=== PATIENT | female | born 1950 | race Two or more races ===

== ENCOUNTER 2016-07-10 20:00 | Observation (INO) | payer OTHER ==
--- NOTE | 2016-07-10 20:40 | ER Document Report ---
ED General - General Stated Complaint: STROKE SYMPTONS Time seen by provider: 20:35 Mode of Arrival: Medic Information source: Patient Notes: This is a 65-year-old female with a history of hypertension brought in by EMS with acute strokelike symptoms. The patient was with family at the time and it just walked the beach and gotten back to the house when the patient fell twice because of weakness in the knees. After the scene. When EMS arrived, the patient was noted to have right facial droop and slurred speech. The family stated she was confused at the time. The onset of symptoms was 1854. - HPI Onset: Just prior to arrival Onset/Duration: Sudden Quality of pain: No pain Severity: None Pain Level: Denies Associated symptoms: denies: Chest pain, Fever, Shortness of breath Exacerbated by: Denies Relieved by: Denies Similar symptoms previously: No Recently seen / treated by doctor: No - Related Data Allergies/Adverse Reactions: No Known Allergies Allergy (Unverified 07/10/16 20:53) Home Medications: Current Home Medications Alprazolam [Xanax 0.5 mg Tablet] 0.5 mg PO Q6HP PRN 07/10/16 [History] Losartan/Hydrochlorothiazide [Hyzaar 50-12.5 Tablet] 1 each PO DAILY 07/10/16 [ History] Venlafaxine HCl [Effexor Xr] 150 mg PO DAILY 07/10/16 [History] Zolpidem Tartrate [Ambien] 10 mg PO QHS 07/10/16 [History] Past Medical History - General Information source: Patient - Social History Smoking Status: Never Smoker Cigarette use (# per day): No Chew tobacco use (# tins/day): No Frequency of alcohol use: None Drug Abuse: None Lives with: Family Family History: Reviewed & Not Pertinent Patient has suicidal ideation: No Patient has homicidal ideation: No - Past Medical History Cardiac Medical History: Reports: Hx Hypertension Pulmonary Medical History: Reports: None EENT Medical History: Reports: None Neurological Medical History: Reports: None Endocrine Medical History: Reports: None Renal/ Medical History: Reports: None Malignancy Medical History: Reports: None GI Medical History: Reports: None Musculoskeltal Medical History: Reports None Skin Medical History: Reports None Psychiatric Medical History: Reports: Hx Anxiety, Hx Depression Traumatic Medical History: Reports: None Infectious Medical History: Reports: None Past Surgical History: Reports: Hx Gastric Bypass Surgery Review of Systems - Review of Systems Notes: Review of systems: Constitutional: Denies fever, chills. EENT: Denies ear pain, sinus tenderness, throat pain, throat swelling. Cardiovascular: Denies chest pain, palpitations, dyspnea or edema. Respiratory: Denies wheezing, cough, hemoptysis. Abdomen: Denies abdominal pain, nausea, vomiting, diarrhea. Denies BRBPR or melena. Genitourinary: Denies dysuria, pyuria, hematuria, flank pain. Musculoskeletal: denies joint pain or swelling, denies back pain. Neurologic: See H&P. Skin: Denies rash, lesions. Physical Exam - Vital signs Vitals: Pulse BP 78 133/88 H 07/10/16 20:10 07/10/16 20:10 Notes: Physical exam: GENERAL: 65-year-old female, alert and oriented 3, answering questions. Family is at the bedside and states that her speech is back to normal. HEAD: Atraumatic, normocephalic. EYES: Pupils equal round and reactive to light, extraocular movements intact, sclera anicteric, conjunctiva are normal. ENT: TMs normal, nares patent, oropharynx clear without exudates. Moist mucous membranes. NECK: Normal range of motion, supple without lymphadenopathy or JVD. LUNGS: Breath sounds clear to auscultation bilaterally and equal. No wheezes rales or rhonchi. HEART: Regular rate and rhythm without murmurs, rubs or gallops. ABDOMEN: Soft, normoactive bowel sounds. No tenderness to palpation. No guarding, no rebound. No masses appreciated. EXTREMITIES: Normal range of motion, no pitting or edema. No clubbing or cyanosis. NEUROLOGICAL: Cranial nerves II through XII grossly intact. Level of consciousness is normal, she is able to answer the month and her age correctly, she is able to respond to commands with opening and closing eyes and light technician and release hand, her gaze is normal, visual fritz are intact, normal facial movements without paralysis, motor exam to the upper and lower extremities is good, no significant ataxia, sensory is grossly intact, her best language is good: She is able to describe each picture correctly, she relates his sentences without difficulty. Her articulation is at baseline as per the family at the bedside. There is no extinction or inattention. NIH is 0. PSYCH: Normal mood, normal affect. SKIN: Warm, Dry, normal turgor, no rashes or lesions noted. Course - Re-evaluation Re-evalutation: 07/10/16 20:40 Patient does have symptoms of an acute stroke and those symptoms have resolved during transport in the ambulance on the way to the hospital. Currently her NIH is 0 and she is not a candidate for thrombolytics. 07/10/16 23:33 - Vital Signs Vital signs: Temp Pulse Resp BP Pulse Ox 98.4 F 78 18 106/67 97 07/10/16 20:15 07/10/16 20:10 07/10/16 22:31 07/10/16 22:31 07/10/16 22:31 - Laboratory Result Diagrams: 07/10/16 20:27 07/10/16 20:27 Laboratory results interpreted by me: 07/10/16 07/10/16 20:27 20:27 Seg Neutrophils % 41.9 L Potassium 3.4 L Chloride 108 H Total Protein 6.2 L - Diagnostic Test Radiology reviewed: Image reviewed, Reports reviewed - CT of the head shows no acute stroke - EKG Interpretation by Me Rate: Normal Rhythm: NSR - EKG shows normal sinus rhythm with a ventricular rate of 69, no acute ST-T wave changes Discharge - Discharge Clinical Impression: acute TIA Condition: Stable Disposition: ADMITTED OBSERVATION Admitting Provider: Hospitalist Unit Admitted: Telemetry
[2016-07-10 20:42] LABS: ABSOLUTE BASOPHILS # (AUTO) 0.1 10^3/uL (0.0-0.2); ABSOLUTE EOSINOPHILS # (AUTO) 0.2 10^3/uL (0.0-0.6); ABSOLUTE LYMPHOCYTES (AUTO) 2.3 10^3/uL (0.5-4.7); ABSOLUTE MONOCYTES (AUTO) 0.5 10^3/uL (0.1-1.4); ABSOLUTE NEUT (AUTO) 2.2 10^3/uL (1.7-8.2); BASOPHILS % (AUTO) 1.3 % (0-2); EOSINOPHILS % (AUTO) 3.6 % (0-6); HEMATOCRIT 36.8 % (36.0-47.0); HEMOGLOBIN 12.2 g/dL (12.0-15.5); HGB HCT DIFFERENCE -0.2; MEAN CORPUSCULAR HEMOGLOBIN 28.5 pg (27.0-33.4); MEAN CORPUSCULAR VOLUME 86 fl (80-97); MONOCYTES % (AUTO) 9.2 % (3-13); RED BLOOD COUNT 4.26 10^6/uL (3.72-5.28); RED CELL DISTRIBUTION WIDTH 13.9 % (11.5-14.0); SEGMENTED NEUTROPHILS % (AUTO) 41.9 % (42-78); WHITE BLOOD COUNT 5.2 10^3/uL (4.0-10.5)
--- NOTE | 2016-07-10 20:45 | EKG REPORT ---
SEVERITY:- NORMAL ECG - SINUS RHYTHM : Confirmed by: Ray Brooke 10-Jul-2016 20:44:35
[2016-07-10 20:47] LABS: PARTIAL THROMBOPLASTIN TIME 31.5 SEC (23.5-35.8); PROTHROMBIN TIME 11.9 SEC (11.4-15.4)
[2016-07-10 21:04] LABS: ALANINE AMINOTRANSFERASE 39 U/L (9-52); ALBUMIN 3.6 g/dL (3.5-5.0); ALKALINE PHOSPHATASE 118 U/L (38-126); ANION GAP 12 (5-19); ASPARTATE AMINO TRANSFERASE 33 U/L (14-36); BILIRUBIN,DIRECT 0.2 mg/dL (0.0-0.4); BILIRUBIN,TOTAL 0.3 mg/dL (0.2-1.3); BLOOD UREA NITROGEN 10 mg/dL (7-20); CALCIUM 9.2 mg/dL (8.4-10.2); CARBON DIOXIDE 23 mmol/L (22-30); CHLORIDE 108 mmol/L (98-107); CREATINE KINASE 48 U/L (30-135); CREATININE RESULT 0.57 mg/dL (0.52-1.25); GLUCOSE 84 mg/dL (75-110); POTASSIUM 3.4 mmol/L (3.6-5.0); SODIUM 143.2 mmol/L (137-145); TOTAL PROTEIN 6.2 g/dL (6.3-8.2)
[2016-07-10 21:16] LABS: CREATINE KINASE MB 0.42 ng/mL (<4.55)
[2016-07-10 21:18] LABS: TROPONIN I < 0.012 ng/mL
[2016-07-11] MEDS ORDERED: ACETAMINOPHEN 325 MG TABLET PO PRN (00:32)
[2016-07-11] MEDS ORDERED: POTASSI CL 20 MEQ/D5NS 1L 1,000 ML IV PRN (00:32)
--- NOTE | 2016-07-11 00:50 | PDOC H&P ---
History of Present Illness Admission Date/PCP: 07/10/16 23:52 OOT--[facility]. Patient complains of: stroke Sx's History of Present Illness: EBTH UNDERWOOD is a 65 year old female with underlying hypertension, anxiety, arthritis, and occasional problems with constipation asthma who presents to the emergency room for evaluation of above complaint. Patient has been discussed with emergency room physician who evaluated the patient. She is in the area visiting family. After she and family had been walking on the beach late afternoon, she fell twice because of "weakness in my knees." Associated right facial droop and slurring of speech upon EMS arrival, along with some confusion. Symptoms have now resolved, and patient is back to baseline, according to sister and niece, who are present at her side with her approval. No prior such episodes. No associated numbness or tingling of extremities. Just "weakness in my knees." Associated mild ear pain, which has since resolved. Otherwise, no headache, chest or abdominal pain. No nausea vomiting, fever or chills, diarrhea or dysuria. No use of tobacco or illicit drugs. Occasional alcohol, but not very much or very often.. Laboratory results are listed in [employer] and are reviewed. X-ray summary results are listed below, with full report(s) reviewed. . EKG reviewed. No prior EKG available for comparison. Social history/personal habits: . One child. Works outside the home. Personal habits as noted above. Allergies/adverse reactions NKDA. Home medications Home medications initially autopopulated into [employer] may not accurately reflect patient's true medications, dosages, and/or frequencies. wind technician to reconcile medications. Unfortunately, patient uncertain of all her medications/dosages/frequencies. REVIEW OF SYSTEMS: Constitutional: No fever or chills. Eyes: Wears glasses. ENT: No swallowing problems or complaints. No hearing problems or complaints. Pulmonary: No current complaints. Cardiovascular: No current complaints, including chest pain. Gastrointestinal: No current complaints, including nausea or vomiting. Skin: No current complaints, including rashes. Hematologic: No unusual easy bruising or bleeding. Easy bruising. Neurologic: See history and present illness. Musculoskeletal: Joint pain from arthritis. Psychiatric: Mild Anxiety Endocrine: No current complaints, including polyuria. Genitourinary: No current complaints, including dysuria. PHYSICAL EXAMINATION: 5 feet 7 inches tall. 99 kg. BMI 34.2 kg/m. Blood pressure 130/70. Pulse 78 and regular. 97% saturation on room air. Respirations are 16 and unlabored. Temperature 98.4. Somewhat obese otherwise well-developed female appearing approximately her stated age. Pleasant awake alert and cooperative. No obvious distress other than somewhat anxious. Emergency room acute care certified nursing assistant Ori is present. Skin is warm and dry. No grossly obvious evidence of rash in areas of skin examined. No subcutaneous nodules palpated. ENT: Hearing grossly normal to normal conversation. Tongue midline on protrusion pink and slightly tacky. Eyes: No scleral icterus. Pupils equal and reactive to light at 4 mm. [place] conjunctivae. Neck is supple and nontender to gentle active range of motion and palpation. Midline trachea. No palpable thyroid nodule mass enlargement or tenderness. Lymphatic: No palpable cervical or clavicular nodes. Neck and lymphatic exams limited by patient body habitus. Psychiatric: Reasonable insight into acute and chronic medical issues. Oriented to time location and why here. Lungs: Auscultation reveals clear and equal breath sounds bilaterally. No use of accessory respiratory muscles. Cardiovascular: Heart regular rate and rhythm, without gallop murmur or rub. No carotid or abdominal aortic bruits. No ankle or pedal edema. palpable dorsalis pedis pulses. Abdomen: soft, somewhat obese, nontender with positive bowel sounds. Unable to adequately evaluate abdomen for masses or organomegaly due to body habitus. Extremities: Feet are warm and dry. No left calf tenderness to compression. Very mild right calf tenderness to compression, without palpable venous cord. Patient states this has been present intermittently for several months, without recent change. No grossly obvious visual evidence of calf swelling. Gentle manipulation of lower extremities fails to reveal any obvious evidence of injury or instability to knees hips or ankles. Neurologic: Cranial Nerves II through XII are grossly intact. Light touch intact at face, upper and lower extremities. Motor function of major muscle groups upper and lower extremities 5 over 5 and symmetric. Patellar reflexes absent. Absent Babinski. Past Medical History Cardiac Medical History: Reports: Hypertension Denies: Congestive Heart Failure, DVT, Hyperlipidema, Pulmonary Embolism Pulmonary Medical History: Denies: Asthma, Chronic Obstructive Pulmonary Disease (COPD) EENT Medical History: Reports: None Neurological Medical History: Denies: Hemorrhagic CVA, Ischemic CVA, Seizures Endocrine Medical History: Denies: Diabetes Mellitus Type 1, Diabetes Mellitus Type 2, Hyperthyroidism, Hypothyroidism Renal/ Medical History: Reports: None Malignancy Medical History: Reports: None GI Medical History: Reports: Other - Mild occasional constipation. Denies: Cirrhosis, Gastroesophageal Reflux Disease, Hepatitis, Peptic Ulcer Disease Musculoskeltal Medical History: Reports: Arthritis - Mild Skin Medical History: Reports: None Psychiatric Medical History: Reports: General Anxiety Disorder Denies: Alcohol Dependency, Substance Abuse, Tobacco Dependency Traumatic Medical History: Reports: None Hematology: Reports: None Infectious Medical History: Denies: Hepatitis B, Hepatitis C Past Surgical History Past Surgical History: Reports: Gastric Bypass Surgery, Other - Cataract surgery. Social History Information Source: Patient, Emergency Med Personnel, [facility] Records Lives with: Spouse/Significant other Smoking Status: Never Smoker Frequency of Alcohol Use: Occasional Drugs: None - Advance Directive Resuscitation Status: Full Code Surrogate healthcare decision maker:: Family History Family History: Reviewed & Not Pertinent Parental Family History Reviewed: Yes Children Family History Reviewed: Yes Sibling(s) Family History Reviewed.: Yes Medication/Allergy Home Medications: RX: Alprazolam [Xanax 0.5 mg Tablet] 0.5 mg PO BID 07/10/16 RX: Losartan/Hydrochlorothiazide [Hyzaar 50-12.5 Tablet] 1 each PO DAILY RX: Venlafaxine HCl [Effexor Xr] 150 mg PO DAILY 07/10/16 RX: Zolpidem Tartrate [Ambien] 10 mg PO QHS 07/10/16 RX: Acetaminophen [Tylenol 325 mg Tablet] 650 mg PO Q4HP PRN tablet 07/11/16 RX: Aspirin [Ecotrin 325 mg EC Tablet] 325 mg PO DAILY tabec 07/11/16 Simvastatin [Zocor 20 mg Tablet] 20 mg PO QHS #30 tablet 07/11/16 Allergies/Adverse Reactions: No Known Allergies Allergy (Unverified 07/10/16 20:53) Physical Exam Vital Signs: Temp Pulse Resp BP Pulse Ox 98.4 F 78 18 106/67 97 07/10/16 20:15 07/10/16 20:10 07/10/16 22:31 07/10/16 22:31 07/10/16 22:31 Results Impressions: Chest X-Ray 07/10/16 20:03 IMPRESSION: NO SIGNIFICANT RADIOGRAPHIC FINDING IN THE CHEST. Head CT 07/10/16 20:03 IMPRESSION: NORMAL BRAIN CT WITHOUT CONTRAST. Pertinent findings on the imaging study reported as a CRITICAL RESULT to Sonido Sargent at20:15 on 07/10/2016. Category of Critical Result: Stroke protocol. Assessment & Plan - Diagnosis (1) Acute encephalopathy Is this a current diagnosis for this admission?: Yes (2) Acute focal neurological deficit Is this a current diagnosis for this admission?: YesPlan: Patient will be placed in observation bed under CVA/TIA protocol. Multiple imaging procedures, intracranial, vascular, and cardiac. lipid panel. Permissive hypertension. Patient is a full code. I have strongly urged patient not to get out of bed without calling nursing staff, to avoid a fall with injury.] Knee high SCDs for DVT prophylaxis, along with subcutaneous Lovenox . Impression and plans were discussed with patient, sister and niece, all of whom concur. Time spent in evaluation and management of patient: 63 minutes (3) Dysarthria Is this a current diagnosis for this admission?: Yes (4) Facial droop Is this a current diagnosis for this admission?: Yes (5) Hypokalemia Is this a current diagnosis for this admission?: YesPlan: Likely due to her blood pressure medication. Potassium replacement with follow- up Chem-7. (6) HTN (hypertension) Qualifiers: Hypertension type: unspecified secondary hypertension Qualified Code (s): I15.9 - Secondary hypertension, unspecified; I15 - Secondary hypertension Is this a current diagnosis for this admission?: YesPlan: Will hold her at home medications for permissive hypertension.
[2016-07-11] MEDS ORDERED: ASPIRIN 325 MG TABLET, ENT COATED PO ONE (01:00)
[2016-07-11] MEDS ORDERED: ASPIRIN 325 MG TABLET, ENT COATED PO SCH (01:00)
[2016-07-11] MEDS ORDERED: POTASSIUM CHLORIDE 20 MEQ/15 ML UDCUP PO ONE ×2 (01:15→03:00)
[2016-07-11] MEDS ORDERED: ALPRAZOLAM 0.5 MG TABLET PO PRN (07:33)
[2016-07-11] MEDS ORDERED: ENOXAPARIN SODIUM INJ 40 MG/0.4 ML DISP.SYRIN SUBCUT SCH (08:00)
[2016-07-11 08:05] LABS: ANION GAP 7 (5-19); BLOOD UREA NITROGEN 11 mg/dL (7-20); CARBON DIOXIDE 26 mmol/L (22-30); CHLORIDE 110 mmol/L (98-107); CHOLESTEROL 239.62 mg/dL (0-200); CREATININE RESULT 0.53 mg/dL (0.52-1.25); Direct HDL 59 mg/dL (>40); GLUCOSE 82 mg/dL (75-110); SODIUM 143.4 mmol/L (137-145); TRIGLYCERIDES 126 mg/dL (<150)
[2016-07-11 08:15] LABS: DIRECT LDL 142 mg/dL (<100)
[2016-07-11 08:48] LABS: POTASSIUM 4.5 mmol/L (3.6-5.0)
[2016-07-11] MEDS ORDERED: VENLAFAXINE HCL 75 MG CAP.SR.24H PO SCH (10:00)
[2016-07-11] MEDS ORDERED: LOSARTAN POTASSIUM 50 MG TABLET PO SCH (10:00)
[2016-07-11 14:09] VITALS: BP 121/74
--- NOTE | 2016-07-11 14:52 | PDOC DISCHARGE SUMMARY ---
General - Admit/Disc Date/PCP Admission Date/Primary Care Provider: 07/11/16 00:32 Discharge Date: 07/11/16 - Discharge Diagnosis (1) Acute focal neurological deficit Is this a current diagnosis for this admission?: YesSummary: Patient had transient dysarthria and right-sided facial droop which was placed resolved upon her arrival here. She underwent CT of the head showed no infarct. Today she had an MRI and MRA of the brain showed no acute infarct perhaps some mild small vessel disease. Carotid duplex ultrasounds were done which were unremarkable for any stenosis. Patient had no further symptoms during her hospital stay she was discharged on aspirin 325 mg daily and simvastatin. (2) Dysarthria Is this a current diagnosis for this admission?: YesSummary: Since resolved (3) Facial droop Is this a current diagnosis for this admission?: YesSummary: Resolved prior to her arrival here (4) HTN (hypertension) Is this a current diagnosis for this admission?: YesSummary: Presently normotensive and current medications (5) Acute encephalopathy Is this a current diagnosis for this admission?: YesSummary: She had periods of confusion probably current family and EMS resolved by the time she arrived here. (6) Hypokalemia Is this a current diagnosis for this admission?: YesSummary: Repleted (7) HLD (hyperlipidemia) Is this a current diagnosis for this admission?: YesSummary: Placed on simvastatin 20 mg daily - Additional Information Resuscitation Status: Full Code Discharge Activity: Activity As Tolerated, Balance Activity w/Rest Home Medications: Alprazolam [Xanax 0.5 mg Tablet] 0.5 mg PO BID 07/10/16 Losartan/Hydrochlorothiazide [Hyzaar 50-12.5 Tablet] 1 each PO DAILY 07/10/16 Venlafaxine HCl [Effexor Xr] 150 mg PO DAILY 07/10/16 Zolpidem Tartrate [Ambien] 10 mg PO QHS 07/10/16 Acetaminophen [Tylenol 325 mg Tablet] 650 mg PO Q4HP PRN tablet 07/11/16 Aspirin [Ecotrin 325 mg EC Tablet] 325 mg PO DAILY tabec 07/11/16 Simvastatin [Zocor 20 mg Tablet] 20 mg PO QHS #30 tablet 07/11/16 History of Present Illness Patient complains of: Bilateral leg weakness, right-sided facial droop and dysarthria History of Present Illness: BETH UNDERWOOD is a 65 year old female with underlying hypertension, anxiety, arthritis, and occasional problems with constipation asthma who presents to the emergency room for evaluation of above complaint. Patient has been discussed with emergency room physician who evaluated the patient. She is in the area visiting family. After she and family had been walking on the beach late afternoon, she fell twice because of "weakness in my knees." Associated right facial droop and slurring of speech upon EMS arrival, along with some confusion. Symptoms have now resolved, and patient is back to baseline, according to sister and niece, who are present at her side with her approval. No prior such episodes. No associated numbness or tingling of extremities. Just "weakness in my knees." Associated mild ear pain, which is since resolved. Otherwise, no headache, chest or abdominal pain. No nausea vomiting, fever or chills, diarrhea or dysuria. No use of tobacco or illicit drugs. Occasional alcohol, but not very much or very often.. Hospital Course Hospital Course: Patient was admitted to the [facility] on telemetry. She had MENDS done hourly and then every 4 hours she had no further symptoms of dysarthria or facial droop. She was evaluated by physical therapy who found no deficits. She underwent an MRI and MRA of the brain which were unremarkable for any acute infarcts. He underwent carotid duplex ultrasound which showed no carotid stenosis. She's had no arrhythmias on telemetry. Her vital signs are well controlled. She was started on aspirin 325 mg daily and simvastatin 20 mg at bedtime. She will follow-up with her primary care provider when she returns to [place] tomorrow. Physical Exam Vital Signs: Temp Pulse Resp BP Pulse Ox 97.2 F 84 18 121/74 98 07/11/16 14:08 07/11/16 14:08 07/11/16 14:08 07/11/16 14:08 07/11/16 14:08 Intake & Output 07/10/16 07/11/16 07/12/16 06:59 06:59 06:59 Intake Total 150 120 Balance 150 120 Weight 97.9 kg General appearance: PRESENT: no acute distress, obese, well-developed, well- nourished Head exam: PRESENT: atraumatic, normocephalic Eye exam: PRESENT: conjunctiva pink, EOMI, PERRLA. ABSENT: scleral icterus Ear exam: PRESENT: normal external ear exam Mouth exam: PRESENT: moist, tongue midline Neck exam: ABSENT: carotid bruit, JVD, lymphadenopathy, thyromegaly Respiratory exam: PRESENT: clear to auscultation donnie. ABSENT: rales, rhonchi, wheezes Cardiovascular exam: PRESENT: RRR. ABSENT: diastolic murmur, rubs, systolic murmur Pulses: PRESENT: normal dorsalis pedis pul Vascular exam: PRESENT: normal capillary refill GI/Abdominal exam: PRESENT: normal bowel sounds, soft. ABSENT: distended, guarding, mass, organolmegaly, rebound, tenderness Rectal exam: PRESENT: deferred Extremities exam: PRESENT: full ROM. ABSENT: calf tenderness, clubbing, pedal edema Neurological exam: PRESENT: alert, awake, oriented to person, oriented to place , oriented to time, oriented to situation, reflexes normal, CN II-XII grossly intact, normal gait. ABSENT: motor sensory deficit Psychiatric exam: PRESENT: appropriate affect, normal mood. ABSENT: homicidal ideation, suicidal ideation Skin exam: PRESENT: dry, intact, warm. ABSENT: cyanosis, rash Results Laboratory Results: 07/11/16 07:15 07/11/16 07:15 Sodium 143.4 Potassium 4.5 D Chloride 110 H Carbon Dioxide 26 Anion Gap 7 BUN 11 Creatinine 0.53 Est GFR ( Amer) > 60 Est GFR (Non-Af Amer) > 60 Glucose 82 Calcium 10.0 Triglycerides 126 Cholesterol 239.62 H LDL Cholesterol Direct 142 H VLDL Cholesterol 25.0 HDL Cholesterol 59 Impressions: Chest X-Ray 07/10/16 20:03 IMPRESSION: NO SIGNIFICANT RADIOGRAPHIC FINDING IN THE CHEST. Head CT 07/10/16 20:03 IMPRESSION: NORMAL BRAIN CT WITHOUT CONTRAST. Pertinent findings on the imaging study reported as a CRITICAL RESULT to Sonido Sargent at20:15 on 07/10/2016. Category of Critical Result: Stroke protocol. Head MRI 07/11/16 00:37 IMPRESSION: 1. Suspect mild small vessel disease. Otherwise, unremarkable noncontrast MRI brain. No recent CVA. Brain MRI with MRA 07/11/16 00:38 IMPRESSION: NORMAL MRA OF THE [place]. Carotid Doppler Study 07/11/16 00:38 IMPRESSION: NO HEMODYNAMICALLY SIGNIFICANT STENOSIS. Qualifiers PATEINT BEING DISCHARGED WITH ANY OF THE FOLLOWING DIAGNOSIS?: No Plan Discharge Plan: Home with family. She'll follow-up with her family physician when she returns to [place] Time Spent: Less than 30 Minutes
[2016-07-11] MEDS ORDERED: ZOLPIDEM TARTRATE 5 MG TABLET PO SCH (22:00)
[2016-07-11] MEDS ORDERED: (PENDING PHARMACY ID) (Zolpidem Tartrate [Ambien] 10 MG) PO SCH (22:00)
--- NOTE | 2016-07-14 09:23 | EKG REPORT ---
SEVERITY:- NORMAL ECG - SINUS RHYTHM : Confirmed on behalf of: Ray Brooke 14-Jul-2016 09:22:55
== END 2016-07-11 14:38 | disposition home or self-care (01) ==
LOC: ER 20:00 → EH 23:52 → UNDOADMOB 23:52 → 3W 07-11 00:32 → EH 07-11 03:00
PROVIDERS: ADMIT Family Medicine; ATTEND Family Medicine
DX: R29.818 Other symptoms and signs involving the nervous system (principal); R47.1 Dysarthria and anarthria; R29.810 Facial weakness; I10 Essential (primary) hypertension; G93.40 Encephalopathy, unspecified; E87.6 Hypokalemia; E78.5 Hyperlipidemia, unspecified
CPT/HCPCS: 93005; 99285; 36415 ×2; 82553; 82550; 85025; 85610; 85730; 80048; 80053; 84484; 80061; 93880; 70551; 70544; 71010; 70450; 93010; G0378 ×2; J3480; J1650